=== PATIENT | female | born 1995 | race Caucasian/White ===

== ENCOUNTER 2017-03-19 09:05 | Emergency (ER) | payer OTHER ==
[2017-03-19 09:16] VITALS: BMI 24.1
[2017-03-19 09:24] VITALS: O2SAT 99
[2017-03-19] MEDS ORDERED: Sodium Chloride 0.9% 1,000 ML IV STA (09:39)
[2017-03-19 10:04] LABS: BASO # 0.03 K/mm3 (0.0-2.0); BASO % 0.5 % (0.0-3.0); EOS # 0.2 (0.0-0.7); EOS % 2.3 % (1.5-5.0); GRAN # 4.09 (1.4-6.5); GRAN % 61.5 % (50.0-68.0); LYMPH # 1.9 (1.2-3.4); LYMPH % 29.2 % (22.0-35.0); MEAN CELL VOLUME 82.8 fL (80.0-105.0); MEAN CORPUSCULAR HEMOGLOBIN 28.3 pg (25.0-35.0); MEAN CORPUSCULAR HGB CONC 34.2 g/dl (31.0-37.0); MEAN PLATELET VOLUME 11.2 fl (7.0-11.0); MONO # 0.4 (0.1-0.6); MONO % 6.5 % (1.0-6.0); PLATELET COUNT 247 10^3/uL (120.0-450.0); RBC 4.59 10^6/uL (3.5-6.1); RED CELL DISTRIBUTION WIDTH 12.1 % (11.5-14.5); WHITE BLOOD COUNT 6.6 10^3/ul (4.5-11.0)
[2017-03-19 10:12] LABS: ALB/GLOB RATIO 1.2 (1.1-1.8); ALBUMIN 4.3 g/dL (3.0-4.8); ALT/SGPT 29 U/L (7-56); AST/SGOT 25 U/L (15-39); BLOOD UREA NITROGEN 10 mg/dL (7-21); CALCIUM 9.9 mg/dL (8.4-10.5); GFR AFRICAN-AMERICAN > 60; GFR NON-AFRICAN AMERICAN > 60
[2017-03-19 10:29] LABS: PH,URINE 6.5 (4.7-8.0); URINE BILIRUBIN NEGATIVE (NEGATIVE); URINE BLOOD NEGATIVE (NEGATIVE); URINE GLUCOSE (UA) NEGATIVE (NEGATIVE); URINE LEUKOCYTE ESTERASE NEGATIVE Leu/uL (NEGATIVE); URINE NITRATE NEGATIVE (NEGATIVE); URINE PROTEIN NEGATIVE mg/dL (<30 mg/dL); URINE UROBILINOGEN 0.2 E.U./dL (<1 E.U./dL)
[2017-03-19 10:30] LABS: URINE APPEARANCE CLEAR (CLEAR); URINE COLOR STRAW (YELLOW)
[2017-03-19 10:32] LABS: HCG,QUALITATIVE URINE NEGATIVE (NEGATIVE)
--- NOTE | 2017-03-19 10:39 | ED PDOC ---
Arrival/HPI - General Chief Complaint: Back Pain Time Seen by Provider: 03/19/17 09:24 Historian: Patient - History of Present Illness Narrative History of Present Illness (Text): 03/19/17 10:36 21yr old female presents today with low back pain that radiates into both lower legs. pt states she was walking and developed pain in the back and weakness in the lower legs. pt states she cant feel both lower legs. pt denies bladder or bowel incontinence. denies abdominal pain. pt denies any trauma or injury. no dizziness. no cp or sob. pt denies prior hx of back problems. no other complaints. Time/Duration: Prior to Arrival Quality: Aching Severity Level: 10 Past Medical History - Provider Review Nursing Documentation Reviewed: Yes - Travel History Have you recently traveled outside [place] w/in the past 3 mons?: No - Infectious Disease Hx of Infectious Diseases: None - Pulmonary Hx Asthma: Yes - Psychiatric Hx Anxiety: Yes Hx Substance Use: No - Anesthesia Hx Anesthesia: Yes Hx Anesthesia Reactions: No Hx Malignant Hyperthermia: No Family/Social History - Physician Review Nursing Documentation Reviewed: Yes Family/Social History: Unknown Family HX Smoking Status: Never Smoked Hx Alcohol Use: No Hx Substance Use: No Allergies/Home Meds Allergies/Adverse Reactions: Allergies acetaminophen [From Percocet] Allergy (Verified 03/19/17 09:16) RASH oxycodone [From Percocet] Allergy (Verified 03/19/17 09:16) RASH Home Medications: Home Meds Medication Instructions Recorded Confirmed ALPRAZolam [Xanax] 1 tab PO BID 03/19/17 03/19/17 Albuterol HFA [Ventolin HFA 90 1 puff IH QID PRN 03/19/17 03/19/17 mcg/actuation (8 g)] Review of Systems - Review of Systems Constitutional: absent: Fatigue, Fevers Respiratory: absent: SOB, Cough Cardiovascular: absent: Chest Pain, Palpitations Gastrointestinal: absent: Abdominal Pain, Nausea, Vomiting Musculoskeletal: Arthralgias, Back Pain Skin: absent: Rash, Pruritis Neurological: absent: Headache, Dizziness Psychiatric: Anxiety. absent: Depression, Suicidal Ideation Physical Exam Vital Signs Reviewed: Yes Vital Signs Temp Pulse Resp BP Pulse Ox 03/19/17 12:43 78 18 117/84 99 03/19/17 11:14 98.7 F 75 18 120/72 99 03/19/17 09:06 98.8 F 70 17 134/85 99 Temperature: Afebrile Blood Pressure: Normal Pulse: Regular Respiratory Rate: Normal Appearance: Positive for: Well-Appearing, Non-Toxic, Comfortable Pain Distress: None Mental Status: Positive for: Alert and Oriented X 3 - Systems Exam Head: Present: Atraumatic Mouth: Present: Moist Mucous Membranes Neck: Present: Normal Range of Motion Respiratory/Chest: Present: Clear to Auscultation, Good Air Exchange. No: Respiratory Distress, Accessory Muscle Use Cardiovascular: Present: Regular Rate and Rhythm, Normal S1, S2. No: Murmurs Abdomen: Present: Normal Bowel Sounds. No: Tenderness, Distention, Peritoneal Signs, Rebound, Guarding Back: Present: Normal Inspection, Midline Tenderness. No: CVA Tenderness, Paraspinal Tenderness Upper Extremity: Present: Normal Inspection Lower Extremity: Present: Normal Inspection, Capillary Refill < 2 s. No: Normal ROM, Temperature Abnormalties, Neurovascularly Intact (decreased sensation in both lower extremities) Neurological: Present: GCS=15, Speech Normal. No: Normal Sensory Function Skin: Present: Warm, Dry Psychiatric: Present: Alert, Oriented x 3 Medical Decision Making ED Course and Treatment: 03/19/17 10:41 21yr old female with sudden onset of low back pain with weakness and parasthesias in lower legs. pt without signs of trauma or injury. with back tenderness. toradol given for pain. cbc; wnll cmp: wnl UA: wnl EKG: NSR at 68b/m no st elevations. MRI of lumbar spine; FINDINGS: Normal lumbar lordosis. Vertebral body heights are preserved. Marrow signal unremarkable. Conus medullaris unremarkable at the level of There is no evidence of disc herniation or spinal stenosis. The discs are normal in height and signal intensity IMPRESSION: Limited study. No evidence of disc herniation or spinal stenosis pt reassessment; patient feeling better after medications are the signs are stable. Ambulating with a steady gait sensation and distal pulses are intact. I discussed the results and the patient using improvement nurse phone [phone]. Last follow-up with the primary care physician and specialist within 7 days. Advised to return symptoms worsen persist or if new concerning symptoms develop. Patient verbalizes understanding of discharge instructions and need for immediate followup. 03/19/17 12:37 impression; back pain Motrin every 6 hours as needed for pain Flexeril one tablet every 8 hours as needed for muscle spasms: May cause drowsiness Followup with the orthopedist within the next 2 days Followup with primary care physician within the next 2 days Return if symptoms worsen persist or if new symptoms develop 03/19/17 18:16 - Lab Interpretations Lab Results: 03/19/17 09:50 03/19/17 09:50 Lab Results 03/19/17 10:10: Urine Color Straw, Urine Appearance Clear, Urine pH 6.5, Ur Specific [place] <= 1.005, Urine Protein Negative, Urine Glucose (UA) Negative, Urine Ketones Negative, Urine Blood Negative, Urine Nitrate Negative, Urine Bilirubin Negative, Urine Urobilinogen 0.2, Ur Leukocyte Esterase Negative, Urine HCG, Qual Negative 03/19/17 09:50: WBC 6.6, RBC 4.59, Hgb 13.0, Hct 38.0, MCV 82.8, MCH 28.3, MCHC 34.2, RDW 12.1, Plt Count 247, MPV 11.2 H, Gran % 61.5, Lymph % (Auto) 29.2, [place] % (Auto) 6.5 H, Eos % (Auto) 2.3, Baso % (Auto) 0.5, Gran # 4.09, Lymph # 1.9, [place] # 0.4, Eos # 0.2, Baso # 0.03 03/19/17 09:50: Beta HCG, Quant < 2.39 03/19/17 09:50: Sodium 139, Potassium 4.2, Chloride 106, Carbon Dioxide 23, Anion Gap 14, BUN 10, Creatinine 0.5, Est GFR ( Amer) > 60, Est GFR (Non- Af Amer) > 60, Random Glucose 91, Calcium 9.9, Total Bilirubin 0.4, AST 25, ALT 29, Alkaline Phosphatase 65, Total Protein 7.8, Albumin 4.3, Globulin 3.5, Albumin/Globulin Ratio 1.2 - RAD Interpretation Radiology Orders: 03/19/17 09:37 SPINAL CANAL LUMBAR W/O CONT [MRI] Stat - Medication Orders Current Medication Orders: Discontinued Medications Sodium Chloride (Sodium Chloride 0.9%) 1,000 mls @ 999 mls/hr IV .Q1H1M STA Stop: 03/19/17 10:39 Last Admin: 03/19/17 09:57 Dose: 999 mls/hr Ketorolac Tromethamine (Toradol) 30 mg IVP STAT STA Stop: 03/19/17 10:27 Last Admin: 03/19/17 11:02 Dose: 30 mg Disposition/Present on Arrival - Present on Arrival Any Indicators Present on Arrival: No History of DVT/PE: No History of Uncontrolled Diabetes: No Urinary Catheter: No History of Decub. Ulcer: No History Surgical Site Infection Following: None - Disposition Have Diagnosis and Disposition been Completed?: Yes Diagnosis: Back pain Disposition: HOME/ ROUTINE Disposition Time: 12:00 Patient Plan: Discharge Condition: GOOD Discharge Instructions (ExitCare): Back Pain (ED) Additional Instructions: Motrin every 6 hours as needed for pain Flexeril one tablet every 8 hours as needed for muscle spasms: May cause drowsiness Followup with the orthopedist within the next 2 days Followup with primary care physician within the next 2 days Return if symptoms worsen persist or if new symptoms develop Prescriptions: Cyclobenzaprine [Cyclobenzaprine HCl] 10 mg PO Q8 #10 tab Ibuprofen [Motrin] 600 mg PO Q6H PRN #20 tab PRN Reason: pain/fever reduction Referrals: Denis Corona MD [Primary Care Provider] - Follow up with primary Jw Reyes MD [Staff Provider] - Follow up with primary Forms: WORK NOTE
--- NOTE | 2017-03-19 10:47 | MRI ---
PROCEDURE: MR LUMBAR SPINE WITHOUT CONTRAST HISTORY: BACK PAIN/ B/L LOWER LEG PARASTHESIAS COMPARISON: None available. TECHNIQUE: Multiecho multiplanar sequences were performed through the lumbar spine without the use of intravenous contrast. The study is limited to the sagittal plane only. The patient refused any further scanning. There is some motion artifact FINDINGS: Normal lumbar lordosis. Vertebral body heights are preserved. Marrow signal unremarkable. Conus medullaris unremarkable at the level of There is no evidence of disc herniation or spinal stenosis. The discs are normal in height and signal intensity IMPRESSION: Limited study. No evidence of disc herniation or spinal stenosis
[2017-03-19 11:15] VITALS: RESP 18; TEMP 98.7
[2017-03-19 12:44] VITALS: BP 117/84; PULSE 78
--- NOTE | 2017-03-19 20:58 | CARD ---
APPROVED REPORT EKG Measurement Heart [id number] <Conclusion> Normal sinus rhythm Normal ECG
== END 2017-03-19 12:44 | disposition home or self-care (01) ==
LOC: ED 09:05
DX: M54.9 Dorsalgia, unspecified (principal)
CPT/HCPCS: 72148; 80053; 81003; 84702; 84703; 85025; 93005; 96361; 96374; 99285; J1885; J7040